=== PATIENT | female | born 1970 | race Asian ===

== ENCOUNTER 2018-08-06 23:39 | Emergency (ER) | payer BC ==
[~2018-08-06] VITALS: Ht 165.1 cm; Wt 61.2 kg
[2018-08-06] MEDS ORDERED: IBUPROFEN 400 MG TABLET ONE (23:57)
[2018-08-07] MEDS ORDERED: IBUPROFEN 400 MG TABLET PO ONE
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
--- NOTE | 2018-08-07 | NUR ---
PT ABLE TO AMBULATE TO RESTROOM WITH STEADY GAIT. URINE COLLECTED AND SENT TO LAB.
--- NOTE | 2018-08-07 00:09 | NUR ---
RADIOLOGY AT BEDSIDE FOR XRAY
[2018-08-07 00:12] LABS: APPEARANCE,URINE Clear (CLEAR); BILIRUBIN,URINE Negative (NEGATIVE); BLOOD, URINE Negative Ery/uL (NEGATIVE); COLOR,URINE Yellow (YELLOW); KETONES,URINE Negative (NEGATIVE); LEUKOCYTE ESTERASE ,URINE Small (NEGATIVE); NITRITE, URINE Negative (NEGATIVE); PROTEIN,URINE Negative (NEGATIVE); UGLUCOSE Negative (NEGATIVE); UROBILINOGEN,URINE 0.2 EU/dL (0.2)
[2018-08-07 00:52] LABS: BACTERIA,URINE Many /HPF (None Seen); SQUAMOUS EPITHELIAL CELL,UR Many /HPF (None Seen)
--- NOTE | 2018-08-07 01:30 | NUR ---
Patient discharged to home in stable condition. Written and verbal after care instructions given. Patient verbalizes understanding of instruction. Pt ambulatory with a steady gait
[2018-08-07 01:31] VITALS: BP 134/88
== END 2018-08-07 01:32 | disposition home or self-care (01) ==
LOC: ER 23:41
DX: S70.02XA Contusion of left hip, initial encounter (principal); V43.52XA Car driver injured in collision with other type car in traffic accident, initial encounter; Y93.89 Activity, other specified; Y92.413 State road as the place of occurrence of the external cause; Y99.8 Other external cause status
CPT/HCPCS: 72170-TC; 81000-TC; 84703-TC; 87086-TC